=== PATIENT | male | born 1985 | race Caucasian/White ===

== ENCOUNTER 2018-04-28 12:40 | Outpatient (CLI) | payer OTHER ==
--- NOTE | 2018-04-28 19:36 | MRI Report ---
Reason: PAIN IN UNSPECIFIED SHOULDER Procedure Date: 04/28/2018 Accession Number: [id number] / [id number] Procedure: MRI - Shoulder RT W/O CPT Code: FULL RESULT: EXAM: RIGHT SHOULDER MRI WITHOUT CONTRAST EXAM DATE: 04/28/2018 01:39 PM. CLINICAL HISTORY: PAIN IN UNSPECIFIED SHOULDER. COMPARISON: None. TECHNIQUE: Multiplanar, multisequence T1-weighted and fluid-sensitive sequences of the shoulder without contrast. Other: None. FINDINGS: Acromioclavicular Region: The acromion is type II. The acromioclavicular joint is unremarkable. The coracoacromial and coracoclavicular ligaments are intact. No subacromial/subdeltoid bursal fluid. Glenohumeral Region: No subluxation. No effusion or loose bodies. The articular cartilage is unremarkable. The glenohumeral ligaments and joint capsule are unremarkable. Bone Marrow: Cortical irregularity and subcortical cystic degenerative changes posterior aspect greater tuberosity at the infraspinatus tendon insertion. Labrum: The labrum is unremarkable on this nonarthrographic study. Musculature/Rotator Cuff: The subscapularis, supraspinatus, infraspinatus, and teres minor tendons are intact. No edema or fatty atrophy. Intermediate signal distal infraspinatus tendon coronal oblique proton density fat saturation sequence. Biceps Tendon: The long head of the biceps tendon and biceps chacorta are intact. Other: The subcutaneous tissues are unremarkable. IMPRESSION: 1. Negative for rotator cuff tear. 2. Subcortical cystic degenerative changes and cortical irregularity posterior aspect greater tuberosity at the infraspinatus tendon insertion. Probable focal tendinosis distal infraspinatus tendon. [facility] MUSCULOSKELETAL RADIOLOGY SECTION
== END 2018-04-28 12:41 | disposition home or self-care (01) ==
LOC: DI 12:40
DX: M19.011 Primary osteoarthritis, right shoulder (principal)